=== PATIENT | male | born 1945 | race Caucasian/White ===

== ENCOUNTER → 2018-05-26 09:57 | Outpatient (CLI) | payer MEDICARE, OTHER, SELFPAY ==
[2018-05-26 11:58] LABS: Absolute Lymphocyte Count 0.59 X10^3/ul (0.83-4.51); Absolute Neutrophil Count 9.8 X10^3/uL (2.0-7.7); Basophil# 0.04 X10^3/uL; Basophil% 0.4 % (0-1); Eosinophil# 0.13 X10^3/uL; Eosinophils% 1.1 % (0-5); Hematocrit 48.5 % (40-54); Hemoglobin 15.5 g/dl (13.0-16.5); Lymphocyte # 0.59 X10^3/ul (4.0); Lymphocyte % 5.2 % (19-41); Mean Corpuscular Hgb 29.5 pg (27.0-32.0); Mean Corpuscular Volume 92.2 fL (80-94); Mean Platelet Vol. 9.3 fl (6.2-12.0); Monocyte# 0.64 X10^3/uL; Monocyte% 5.6 % (0-10); Neutrophil # 9.84 X10^3/uL (2.7-7.7); Neutrophil % 86.4 % (47-70); Platelet Count 264 K/mm3 (150-450); RBC Distribution Width CV 15.5 % (11.6-14.6); RBC Distribution Width SD 52.3 fl (35.1-43.9); Red Blood Count 5.26 M/mm3 (4.6-6.2); White Blood Count 11.4 K/mm3 (4.4-11.0)
[2018-05-26 11:59] LABS: Differential Indicated SCAN CRITERIA MET; POSITIVE COUNT NO; POSITIVE DIFFERENTIAL YES; POSITIVE MORPHOLOGY NO
[2018-05-26 12:11] LABS: AST(SGOT) 20 U/L (15-37); Alanine Aminotransfer ALT/SGPT 39 U/L (16-61); Albumin, Serum 3.3 g/dL (3.2-5.0); Alkaline Phosphatase 66 U/L (45-117); Anion Gap 11 (5-15); BUN 30 mg/dL (7-18); BUN/Creat Ratio 21.6 RATIO (10-20); Calcium,Total 9.3 mg/dL (8.5-10.1); Chloride 106 mmol/L (98-107); Creatinine, Serum 1.39 mg/dL (0.70-1.30); EST Glomerular Filtration Rate 53 mL/min (>60); Est Glom Filt Rate - Afr Amer 65 mL/min (>60); Globulin 3.4 g/dL (2.2-4.2); Glucose 109 mg/dL (74-106); Potassium 3.9 mmol/L (3.5-5.1); Protein, Total 6.7 g/dL (6.4-8.2); Rheumatoid Factor < 10.0 IU/mL (<15); Sodium Level 142 mmol/L (136-145)
[2018-05-26 12:22] LABS: Differential Comment SCANNED
[2018-06-02 10:33] LABS: CCP IgG Antibodies 4 units (0-19); HEPATITIS B SURFACE AG Negative (Negative); HLA B27 Negative (.); Hep B Surface Antibodies Reactive (.); Hep C Antibodies <0.1 s/co ratio (0.0-0.9)
== END ==
PROVIDERS: Family Provider Family Medicine; PCP Family Medicine; Visit Provider Internal Medicine Rheumatology
DX: M06.4 Inflammatory polyarthropathy (principal); M51.37 Other intervertebral disc degeneration, lumbosacral region; I10 Essential (primary) hypertension; E03.9 Hypothyroidism, unspecified; N40.1 Benign prostatic hyperplasia with lower urinary tract symptoms; F32.89 Other specified depressive episodes; J30.9 Allergic rhinitis, unspecified; K21.9 Gastro-esophageal reflux disease without esophagitis
CPT/HCPCS: 36415; 72170; 80053; 81374; 85025; 86200; 86431; 86706; 86803; 87340

== ENCOUNTER → 2018-09-22 16:44 | Outpatient (CLI) | payer MEDICARE, OTHER, SELFPAY ==
--- NOTE | 2018-09-22 16:49 | RAD_ITS ---
STUDY: X-RAY - PELVIS AND RIGHT HIP REASON FOR EXAM: Male, 73 years old. Right hip pain. TECHNIQUE: 3 views of the pelvis and hip. COMPARISON: Pelvis, May 26, 2018. FINDINGS: There is a non-specific bowel gas pattern. Normal visualized soft tissue structures. Again seen is posterior fusion of L5-S1. Normal bilateral iliac wings, sacroiliac joints and visualized sacrum. Normal bilateral superior and inferior pubic rami. Normal pubic symphysis. Normal bilateral ischial tuberosities. Normal visualized right femoral head. Normal right acetabulum. There is moderate articular joint space narrowing of the right hip. 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 Electronically Signed: Danish Aldrich DO at 23:15 EST Tel [phone], Service support ,
--- OUTSIDE RECORDS SUMMARY | 2018-12-25 05:21 | XMS RPT_ITS ---
:1945 Author Organization OHIP Support Name Relationship Address Phone SUKHDEVBRENDA Unavailable [address] + [place] [address] BRENDA SANTIZO Unavailable [address] [place] [address] BRENDA SANTIZO Unavailable [address] + [place] [address] BRENDA SANTIZO Unavailable [address] [place] [place] [address] BRENDA SANTIZO Unavailable [address] + [place] [address] BRENDA SANTIZO Unavailable [address] [place] [place] [address] BRENDA SANTIZO Unavailable [address] + [place] [address] S Unavailable Unavailable Unavailable BRENDA SANTIZO Unavailable [address] + [place] [address] BRENDA SANTIZO Unavailable [address] [place] [address] BRENDA SANTIZO Unavailable [address] + [place] [address] BRENDA SANTIZO Unavailable [address] [place] [address] BRENDA SANTIZO Unavailable [address] + [place] [address] S Unavailable Unavailable Unavailable BRENDA SANTIZO Unavailable [address] + [place] [address] BRENDA SANTIZO Unavailable [address] [place] [address] BRENDA SANTIZO Unavailable [address] + [place] [address] BRENDA SANTIZO Unavailable [address] [place] [address] Care Team Providers Name Role Phone Ramesh Barber Attending Unavailable Ramesh Barber Referring Unavailable Shaun Linda Primary Care Unavailable Tania Riggs Attending Unavailable Tania Riggs Referring Unavailable Alexei, Shaun Primary Care Unavailable ALEXEI, SHAUN Admitting Unavailable ALEXEI, SHAUN Attending Unavailable ALEXEI, SHAUN Primary Care Unavailable ALEXEI, SHAUN Consulting Unavailable PROVIDER, UNKNOWN Consulting Unavailable PROVIDER, UNKNOWN Consulting Unavailable PROVIDER, UNKNOWN Consulting Unavailable ALEXEI, SHAUN Admitting Unavailable ALEXEI, SHAUN Attending Unavailable ALEXEI, SHAUN Primary Care Unavailable ALEXEI, SHAUN Consulting Unavailable PROVIDER, UNKNOWN Consulting Unavailable PROVIDER, UNKNOWN Consulting Unavailable PROVIDER, UNKNOWN Consulting Unavailable INGRID SCHUSTER MD Admitting Unavailable SCHUSTER, INGRID PIERRE Attending Unavailable SCHUSTERINGRID MD Primary Care Unavailable SHAUN LINDA Consulting Unavailable PROVIDER, UNKNOWN Consulting Unavailable PROVIDER, UNKNOWN Consulting Unavailable PROVIDER, UNKNOWN Consulting Unavailable SCHUSTER, INGRID PIERRE Admitting Unavailable SCHUSTER, INGRID PIERRE Attending Unavailable SCHUSTER, INGRID PIERRE Primary Care Unavailable SHAUN LINDA Consulting Unavailable PROVIDER, UNKNOWN Consulting Unavailable PROVIDER, UNKNOWN Consulting Unavailable PROVIDER, UNKNOWN Consulting Unavailable INGRID SCHUSTER MD Admitting Unavailable SCHUSTER, INGRID PIERRE Attending Unavailable SCHUSTER, INGRID PIERRE Primary Care Unavailable SHAUN LINDA Consulting Unavailable PROVIDER, UNKNOWN Consulting Unavailable PROVIDER, UNKNOWN Consulting Unavailable PROVIDER, UNKNOWN Consulting Unavailable SCHUSTER, INGRID PIERRE Admitting Unavailable SCHUSTER, INGIRD PIERRE Attending Unavailable SCHUSTER, INGRID PIERRE Primary Care Unavailable SHAUN LINDA Consulting Unavailable PROVIDER, UNKNOWN Consulting Unavailable PROVIDER, UNKNOWN Consulting Unavailable PROVIDER, UNKNOWN Consulting Unavailable INGRID SCHUSTER MD Admitting Unavailable SCHUSTER, INGRID PIERRE Attending Unavailable SCHUSTERINGRID MD Primary Care Unavailable SHAUN LINDA Consulting Unavailable PROVIDER, UNKNOWN Consulting Unavailable PROVIDER, UNKNOWN Consulting Unavailable PROVIDER, UNKNOWN Consulting Unavailable Ingrid Schuster Attending Unavailable PROBLEMS PROBLEMS DATE TYPE CONDITION / CODE ATTENDING STATUS SOURCE 09/11/2018 Admitting Polymyalgia INGRID SCHUSTER MD Active [place] [facility] rheumatica / [facility] M353(ICD-10) Hospital Repository 09/11/2018 Principle Polymyalgia INGRID SCHUSTER MD Active [place] [facility] rheumatica / [facility] M353(ICD-10) Hospital Repository 09/11/2018 Secondary Age-related INGRID SCHUSTER MD Active [place] [facility] osteoporosis without [facility] fracture / Repository M810(ICD-10) 08/26/2018 Admitting Elevated C-reactive INGRID SCHUSTER MD Active [place] protein (CRP) / [facility] R7982(ICD-10) Hospital Repository 08/26/2018 Principle Elevated C-reactive ANEUDY, INGRID PIERRE Active [place] [facility] protein (CRP) / [facility] R7982(ICD-10) Hospital Repository 08/26/2018 Secondary 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, Hospital lumbosacral region / Repository M51.37(ICD-10) 05/26/2018 Unknown I10 - Essential [place], Active [place] (primary) [facility] hypertension / Hospital I10(ICD-10) Repository 05/26/2018 Unknown E03.9 - [place], Active [place] Hypothyroidism, [facility] unspecified / Hospital E03.9(ICD-10) Repository 05/26/2018 Unknown N40.1 - Benign [place], Active [place] prostatic [facility] hyperplasia with Hospital lower urinary tract Repository symptoms / N40.1(ICD-10) 05/26/2018 Unknown F32.89 - Other [place], Active [place] specified depressive [facility] episodes / Hospital F32.89(ICD-10) Repository 05/26/2018 Unknown J30.9 - Allergic [place], Active [place] rhinitis, [facility] unspecified / Hospital J30.9(ICD-10) Repository PROCEDURES PROCEDURES No Procedure Records FoundRESULTS RESULTS CBC Collected: 10/22/2018 Status: F Source: [place] 9:19 AM [facility] REPOSITORY TYPE CODE TESTS RESULT OUT OF RANGE REFERENCE UNITS LAB CBC(LOINC) CBC Result Comment: CBC-COMPLETE BLOOD COUNT LAB WBC(LOINC) 4.5 - 10.8 x 10EE3/UL WBC 8.6 LAB RBC(LOINC) 4.50 - x 10EE6/UL 6.00 RBC 4.97 LAB HEMOGLOBIN(LOINC 13.0 - g/dl ) 17.5 HEMOGLOBIN 15.1 LAB HEMATOCRIT(LOINC 40.0 - % ) 52.0 HEMATOCRIT 45.6 LAB MCV(LOINC) 81 - 98 fl MCV 92 LAB MCH(LOINC) 27 - 33 pg MCH 30 LAB MCHC(LOINC) 32 - 36 X10 3 MCHC 33 LAB RDW/CV(LOINC) 12.0 - % 15.6 RDW/CV High 15.9 LAB PLATELET(LOINC) 150 - 450 x10EE3/UL PLATELET 384 LAB MPV(LOINC) 6.4 - 10.5 fl MPV 7.3 Result Comment: AUTOMATED DIFFERENTIAL LAB NEUT %(LOINC) 46.0 - % 76.0 NEUT % 62.4 LAB LYMPH %(LOINC) 20.0 - % 45.0 LYMPH % 26.0 LAB MONOS %(LOINC) 0.0 - 10.0 % MONOS % 7.1 LAB EO %(LOINC) 0.0 - 7.0 % EO % 3.7 LAB BASO %(LOINC) 0.0 - 2.0 % BASO % 0.8 LAB Lymph #(LOINC) 0.80 - x10EE3/ 2.80 UL Lymph # 2.20 LAB Neut #(LOINC) 1.50 - x10EE3/ 7.10 UL Neut # 5.40 LAB [place] #(LOINC) 0.20 - x10EE3/ 1.00 UL [place] # 0.60 LAB EO #(LOINC) 0.00 - x10EE3/ 0.50 UL EO # 0.30 LAB Baso #(LOINC) 0.00 - x10EE3/ 0.10 UL Baso # 0.10 LAB MANUAL DIFF(LOINC) MANUAL DIFF SEE BELOW LAB BANDS(LOINC) 0 - 5 % BANDS 9 High LAB SEGS(LOINC) 50 - 70 % SEGS 55 LAB LYMPH(LOINC) 20 - 40 % LYMPH 23 LAB MONOS(LOINC) 0 - 8 % MONOS 6 LAB EO(LOINC) 0.0 - 4.0 % EO 7.0 High LAB MORPHOLOGY(LOIN C) MORPHOLOGY REVIEWED Result Comment: {CD] Performed By: #### [id number] #### [facility],[address] [place], [place] [id number] SEDRATE Collected: 10/22/2018 Status: F Source: [place] 9:19 AM [facility] REPOSITORY TYPE CODE TESTS RESULT OUT OF REFERENCE UNITS RANGE LAB SEDRATE(MADI 0 - 20 mm/hr NC) SEDRATE 9 Performed By: #### [id number] #### [place] [address] C-REACTIVE PROTEIN Collected: 10/07/2018 Status: F Source: [place] 2:50 PM [facility] REPOSITORY TYPE CODE TESTS RESULT OUT OF RANGE REFERENCE UNITS LAB CRP(LOINC) 0.00 - 1.00 mg/dl CRP 0.60 Performed By: #### [id number] #### [facility],[address] [place] [address] SEDRATE Collected: 10/07/2018 Status: F Source: [place] 2:50 PM [facility] REPOSITORY TYPE CODE TESTS RESULT OUT OF REFERENCE UNITS RANGE LAB SEDRATE(MADI 0 - 20 mm/hr NC) SEDRATE 13 Performed By: #### [id number] #### [place] [id number] BONE DENSITY STUDY Observed: 09/24/2018 Status: F Source: [place] 2:57 PM [place] [address] Patient: WENDY SANTIZO Phone#: : 1945 Age: 73 Gender: M Pt. Type: Out Account: [id number] Location: Ordering: INGRID SCHUSTER Exam Date: 09/24/2018/14:00 Family Phys: SHAUN LINDA Charge Code: [id number] Physician: [place] Order #: [id number] DLP Dose#: PROCEDURE: BONE DENSITY STUDY TECHNIQUE: Lumbar vertebral and proximal femoral dual-energy X-ray absorptiometry (DXA) was performed on a central [place] device. SPINE ANALYSIS RESULTS: Average lumbar bone mineral density (BMD) (g/cm2): 1.326 Lumbar T-score (standard deviation relative to young adult mean BMD): 1.0 Lumbar Z-score (standard deviation relative to age matched control group): 0.8 SPINE CLASSIFICATION: Normal (T-score > -1.0). HIP ANALYSIS RESULTS: Left femoral bone mineral density (BMD) (g/cm2): 1.164 Right femoral bone mineral density (BMD) (g/cm2): 1.107 Femur T-score (standard deviation relative to young adult mean BMD): 0.3 Femur Z-score (standard deviation relative to age matched control group): 0.7 HIP CLASSIFICATION (World Health Organization): Normal (T-score > -1.0). Note: The 2007 International Society for Clinical Densitometry (ISCD) Official Positions state that osteoporosis in soheila-menopausal and post-menopausal women and in men age 50 and older may be diagnosed if the T-score of the lumbar spine, total hip, or femoral neck is -2.5 or less. Hip BMD is reported from the femoral neck or total proximal femur whichever is lowest. In pre-menopausal women and in men younger than age 50, T-scores may be used but Z-scores are preferred. In this patient group, a Z-score of -2.0 or lower is defined as below the expected range for age. FRAX is a computer-based algorithm which uses easily obtained clinical risk factors combined with femoral neck BMD or T-score to estimate an individual 10-year fracture probability. FRAX with BMD predicts fracture risk better than clinical risk factors or BMD alone. It is not appropriate to use FRAX to monitor treatment response. ADDITIONAL FINDINGS: No significant additional findings. [place] [address] Patient: WENDY SANTIZO Phone#: : 1945 Age: 73 Gender: M Pt. Type: Out Account: [id number] Location: Ordering: INGRID ANEUDY Exam Date: 09/24/2018/14:00 Family Phys: SHAUN LINDA Charge Code: [id number] Physician: [place] Order #: [id number] DLP Dose#: Dictated by: Kendal Todd MD on 09/24/2018 at 15:03 Approved by: Kendal Todd MD on 09/24/2018 at 15:03 HIP, UNI W/ PELVIS Observed: 09/22/2018 Status: F Source: [facility] 2-3 VIEWS 4:49 PM [facility] REPOSITORY [facility] Imaging Services [address] [place] [address] HIP, UNI W/ Pelvis 2-3 Views MR#: [id number] Acct: [id number] Name: WENDY SANTIZO Rep #: [id number] : 1945 M 73 From: Danish Aldrich DO PCP: Shaun Linda MD Status: REG CLI Study: HIP, UNI W/ Pelvis 2-3 Views Date of Exam: 09/22/18 Exam# [id number] Ordering Dr: Ramesh Barber MD STUDY: X-RAY - PELVIS AND RIGHT HIP REASON FOR EXAM: Male, 73 years old. Right hip pain. TECHNIQUE: 3 views of the pelvis and hip. COMPARISON: Pelvis, May 26, 2018. FINDINGS: There is a non-specific bowel gas pattern. Normal visualized soft tissue structures. Again seen is posterior fusion of L5-S1. Normal bilateral iliac wings, sacroiliac joints and visualized sacrum. Normal bilateral superior and inferior pubic rami. Normal pubic symphysis. Normal bilateral ischial tuberosities. Normal visualized right femoral head. Normal right acetabulum. There is moderate articular joint space narrowing of the right hip. 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 Electronically Signed: Danish Aldrich DO at 23:15 EST Tel [phone], Service support , CC: Ramesh Barber; Shaun Linda MD Silica Spray Mixer: Signed PTH, INTACT Collected: 09/11/2018 Status: F Source: [place] 1:09 PM [facility] REPOSIT[facility] TYPE CODE TESTS RESULT OUT OF REFERENCE UNITS RANGE LAB PTH(LOINC) 15-65 pg/mL High PTH, Intact 91 Performed By: #### PTHI #### [facility] Routine Lab [address] [place] [address] SEDRATE Collected: 09/11/2018 Status: F Source: [place] 1:09 PM [facility] REPOSITORY TYPE CODE TESTS RESULT OUT OF REFERENCE UNITS RANGE LAB SEDRATE(MADI 0 - 20 mm/hr NC) SEDRATE 6 Performed By: #### [id number] #### [address] [address] VITAMIN D, 25 Collected: 09/11/2018 Status: F Source: [place] HYDROXY 1:09 [facility] REPOSITORY TYPE CODE TESTS RESULT OUT OF RANGE REFERENCE UNITS LAB VitD(LOINC) 30.00 - 100 ng/mL Low VitD 15.61 Result Comment: 25-OHD3 indicates both endogenous production and supplementation. 25-OHD2 is an indicator of exogenous sources, such as diet or supplementation. Therapy is based on measurement of Total 25-OHD, with levels <20 ng/mL indicative of Vitamin D deficiency, while levels between 20 ng/mL and 30 ng/mL suggest insufficiency. Optimal levels are >=30ng/mL. Vitamin D, 25-OH D3 Not Established Vitamin D, 25-OH D2 Not Established Performed By: #### [id number] #### [address] [address] C-REACTIVE PROTEIN Collected: 09/11/2018 Status: F Source: [place] 1:09 PM [facility] REPOSITORY TYPE CODE TESTS RESULT OUT OF RANGE REFERENCE UNITS LAB CRP(LOINC) 0.00 - 1.00 mg/dl CRP 0.20 Performed By: #### [id number] #### [address] [address] CREATININE CLEARANCE, Collected: 09/11/2018 Status: F Source: [place] SERUM 1:09 [facility] REPOSITORY TYPE CODE TESTS RESULT OUT OF REFERENCE UNITS RANGE LAB CREATININE 0.7 - 1.3 mg/dl (LOINC) High CREATININE 1.4 LAB AGE(LOINC) years AGE 73 LAB eGFR(LOINC 60 - 999 ML/MINUTE ) Low eGFR 50 LAB eGFR(AA)(L 60 - 999 ML/MINUTE OINC) eGFR(AA) 60 Result Comment: ACCORDING TO THE NATIONAL KIDNEY DISEASE EDUCATION PROGRAM(NKDE), A NORMAL eGFR IS A VALUE GREATER THAN OR EQUAL TO 60 ML/MIN/1.73 SQ METERS. CHRONIC KIDNEY DISEASE: <60mL/MIN/1.73 SQ METERS KIDNEY FAILURE: <15mL/MIN/1.73 SQ METERS THIS TEST SHOULD ONLY BE USED FOR PATIENTS 18 YEARS OF AGE AND OLDER. Performed By: #### [id number] #### [facility],[address] [place] [address] CALCIUM TOTAL Collected: 09/11/2018 Status: F Source: [facility] 1:09 [facility] REPOSITORY TYPE CODE TESTS RESULT OUT OF REFERENCE UNITS RANGE LAB CALCIUM(MADI 8.6 - 10.2 mg/dl NC) CALCIUM 9.7 Performed By: #### [id number] #### [facility],[address] [place], [place] [id number] PTH, INTACT [CCL] Collected: 09/11/2018 Status: F Source: [facility] 1:09 [facility] REPOSITORY TYPE CODE TESTS RESULT OUT OF REFERENCE UNITS RANGE LAB PTH, INTACT [CCL](LOINC) PTH, INTACT [CCL] Result Comment: _PTH, INTACT [CCL]_ PTH, INTACT [CCL] Reported: 09/12/2018 03:57 Status=F TEST RESULT FLAG RANGE UNITS PTH, Intact 91 H 15-65 pg/mL 09/12/[email or web address] [facility] [address] [place] [address] Debra Jose M.D. [id number] Performed By: #### [id number] #### [facility],[address] [place] [address] KNEE COMPLETE RT MIN Observed: 08/26/2018 Status: F Source: [facility] 4 VIEWS 11:00 AM [place] [address] Patient: WENDY SANTIZO Phone#: : 1945 Age: 73 Gender: M Pt. Type: Out Account: [id number] Location: Ordering: INGRID SCHUSTER Exam Date: 08/26/2018/10:32 Family Phys: SHAUN LINDA Charge Code: [id number] Physician: [place] Order #: [id number] DLP Dose#: PROCEDURE: X-RAY KNEE RT COMPLETE 4 VIEWS COMPARISON: None. INDICATIONS: Osteoarthritis. FINDINGS: BONES: There is mild medial compartment joint space loss. No fracture or dislocation. There is mild spurring at the undersurface of the patella. There is lateral patellar tilt measuring 9.6. SOFT TISSUES: Negative. No visible soft tissue swelling. EFFUSION: There is a trace suprapatellar joint effusion. OTHER: Negative. CONCLUSION: 1. Mild medial compartment joint space loss. 2. Lateral patellar tilt and spurring of the undersurface of the patella. Dictated by: eKndal Todd MD on 08/26/2018 at 11:45 Approved by: Kendal Todd MD on 08/26/2018 at 11:45 KNEE COMPLETE LT MIN Observed: 08/26/2018 Status: F Source: [facility] [facility] 4 VIEWS 11:[address] [address] Patient: WENDY SANTIZO Phone#: : 1945 Age: 73 Gender: M Pt. Type: Out Account: [id number] Location: Ordering: INGRID SCHUSTER Exam Date: 08/26/2018/10:35 Family Phys: SHAUN LINDA Charge Code: [id number] Physician: [place] Order #: [id number] DLP Dose#: PROCEDURE: X-RAY KNEE LT COMPLETE 4 VIEWS COMPARISON: None. INDICATIONS: Osteoarthritis. FINDINGS: BONES: There is mild medial compartment joint space loss. There is spurring and the undersurface of the patella. There is mild patellofemoral compartment joint space loss. SOFT TISSUES: Negative. No visible soft tissue swelling. EFFUSION: None visible. OTHER: Negative. CONCLUSION: 1. Mild patellofemoral and medial compartments joint space loss. Dictated by: Kendal Todd MD on 08/26/2018 at 11:46 Approved by: Kendal Todd MD on 08/26/2018 at 11:46 C-REACTIVE PROTEIN Collected: 08/26/2018 Status: F Source: [facility] 10:37 AM [facility] REPOSITORY TYPE CODE TESTS RESULT OUT OF RANGE REFERENCE UNITS LAB CRP(LOINC) 0.00 - 1.00 mg/dl CRP 0.40 Performed By: #### [id number] #### [place] [address] SEDRATE Collected: 08/26/2018 Status: F Source: [facility] 10:37 AM [facility] REPOSITORY TYPE CODE TESTS RESULT OUT OF REFERENCE UNITS RANGE LAB SEDRATE(MADI 0 - 20 mm/hr NC) SEDRATE 8 Performed By: #### [id number] #### [facility],[address] [place] [address] TP Collected: 08/19/2018 Status: F Source: [facility] 12:00 PM [facility] REPOSITORY TYPE CODE TESTS RESULT OUT OF RANGE REFERENCE UNITS LAB L500.41720 6.0-8.5 GM/DL Normal TP 6.7 Performed By: #### L500.85914, L500.44821 #### [facility] [address] [place] [address] BILI TOTAL Collected: 08/19/2018 Status: F Source: [facility] 12:00 PM [facility] REPOSITORY TYPE CODE TESTS RESULT OUT OF RANGE REFERENCE UNITS LAB L500.27062 0.2-1.0 MG/DL Normal BILI 0.4 TOTAL Performed By: #### L500.51432, L500.12547 #### [facility] [address] [place] [address] PELVIS 1 OR 2 VIEWS Observed: 05/26/2018 Status: F Source: [facility] 10:10 AM [facility] REPOSITORY [facility] Imaging Services [address] [place] [address] Pelvis 1 or 2 Views MR#: [id number] Acct: [id number] Name: WENDY SANTIZO Rep #: [id number] : 1945 M 72 From: Noé Lomeli DO PCP: Shaun Linda Status: REG CLI Study: Pelvis 1 or 2 Views Date of Exam: 05/26/18 Exam# [id number] Ordering Dr: Tania Riggs MD STUDY: X-RAY - PELVIS REASON FOR EXAM: Male, 72 years old. Bilateral hip pain TECHNIQUE: One view of the pelvis was obtained. COMPARISON: None. FINDINGS: There is a non-specific bowel gas pattern. Normal visualized soft tissue structures. Lower lumbar spine degenerative change with fusion Normal bilateral iliac wings, sacroiliac joints and visualized sacrum. Normal visualized bilateral superior and inferior pubic rami. Normal pubic symphysis. Normal ischial tuberosities. There are osteoarthritic changes of the right femoral head with marginal osteophyte formation. Normal right acetabulum. There is mild articular joint space narrowing of the right hip. There are osteoarthritic changes of the left femoral head with marginal osteophyte formation. Normal left acetabulum. There is mild articular joint space narrowing of the left hip. RAD/Pelvis 1 or 2 Views IMPRESSION: Mild bilateral hip degenerative changes Electronically Signed: Noé Lomeli DO at 9:54 EDT Tel , Service support , CC: Tania Riggs MD; Shaun Linda Silica Spray Mixer: Signed CBC W/DIFF, AUTOMATED Collected: 05/26/2018 Status: F Source: [place] 10:09 AM [facility] REPOSITORY TYPE CODE TESTS RESULT OUT OF RANGE REFERENCE UNITS LAB L100.1000 4.4-11.0 K/mm3 High WBC 11.4 LAB L100.1200 4.6-6.2 M/mm3 Normal RBC 5.26 LAB L100.1300 13.0-16.5 g/dl Normal HGB 15.5 LAB L100.1400 40-54 % Normal HCT 48.5 LAB L100.1500 80-94 fL Normal MCV 92.2 LAB L100.1600 27.0-32.0 pg Normal MCH 29.5 LAB L100.1700 32-36 g/gl Normal MCHC 32.0 LAB L100.1810 11.6-14.6 % High RDW CV 15.5 LAB L100.1820 35.1-43.9 fl High RDW SD 52.3 LAB L100.1900 150-450 K/mm3 Normal PLT 264 LAB L100.2000 6.2-12.0 fl Normal MPV 9.3 LAB L100.2100 47-70 % High NEUT% 86.4 LAB L100.2200 19-41 % Low LY% 5.2 LAB L100.2300 0-10 % Normal MONO% 5.6 LAB L100.2400 0-5 % Normal EO% 1.1 LAB L100.2500 0-1 % Normal BASO% 0.4 LAB L100.2550 0.0-0.9 % High IM GRAN % 1.300 Result Comment: IG% - Immature Granulocytes (promyelocytes, myelocytes and metamyelocytes) > 1% indicates that a LEFT SHIFT is Present. LAB L100.2620 2.0-7.7 X10 3/uL High Absolute Neut 9.8 LAB L100.2720 0.83-4.51 X10 3/ul Low Absolute Lymph 0.59 LAB L100.4500 Normal SMEAR COMMENT SCANNED Result Comment: RARE BANDS NOTED Performed By: #### L100.0100 #### [facility] [place], [address] COMPREHENSIVE METABOLIC Collected: 05/26/2018 Status: F Source: [facility] 10:09 AM [facility] REPOSITORY TYPE CODE TESTS RESULT OUT OF RANGE REFERENCE UNITS LAB L501.0100 74-106 mg/dL High GLU 109 Result Comment: Fasting Glucose result from 100 to 125 mg/dL suggests IMPAIRED HOMEOSTASIS per A.D.A. criteria. Please note revised GLUCOSE reference range effective 2017. LAB L501.1000 7-18 mg/dL High BUN 30 LAB L501.1100 0.70-1.30 mg/dL High CREAT,SERUM 1.39 Result Comment: The validity of the calculated GFR AND GFRAA in patients over 70 years has not been determined. Clinical correlation is essential. LAB L501.1110 >60 mL/min Low EST GFR 53 Result Comment: Non- GFR Calc LAB L501.1115 >60 mL/min Normal EST GFR - AA 65 Result Comment: GFR Calc LAB L501.1300 10-20 RATIO High BUN/CRE 21.6 LAB L501.1500 6.4-8.2 g/dL T Normal PROT 6.7 LAB L501.1800 3.2-5.0 g/dL Normal ALB 3.3 LAB L501.1950 2.2-4.2 g/dL Normal GLOB 3.4 LAB L501.2000 0.9-2.4 RATIO Normal A/G 1.0 LAB L501.2200 8.5-10.1 mg/dL CA Normal 9.3 LAB L501.4100 15-37 U/L Normal AST 20 LAB L501.4305 45-117 U/L Normal ALK P 66 LAB L501.4405 16-61 U/L Normal ALT 39 LAB L501.4600 0.20-1.00 mg/dL T Normal BILI 0.50 LAB L501.5300 136-145 mmol/L NA Normal 142 LAB L501.5600 3.5-5.1 mmol/L K Normal 3.9 LAB L501.5900 98-107 mmol/L CL Normal 106 LAB L501.6100 21.0-32.0 mmol/L Normal CO2 25.0 LAB L501.6200 5-15 Normal GAP 11 Performed By: #### L500.4050, L505.7010 #### [facility] [address] [place], [place], [address] RHEUMATOID FACTOR Collected: 05/26/2018 Status: F Source: [place] 10:09 AM [facility] REPOSITORY TYPE CODE TESTS RESULT OUT OF RANGE REFERENCE UNITS LAB L505.7010 <15 IU/mL Normal RHEUMATOID FAC < 10.0 Performed By: #### L500.4050, L505.7010 #### [facility] [address] [place], [place], [id number] HEPATITIS B SURFACE Collected: 05/26/2018 Status: F Source: [facility] [place] 10:09 AM [facility] REPOSITORY TYPE CODE TESTS RESULT OUT OF RANGE REFERENCE UNITS LAB L3100.0400 Negative Normal HB Negative SURF AG Result Comment: Performed at: - [facility] [id number] Soapstoner: Booker Iraheta PhD, Phone: [phone] Performed at: [address] [place] [id number] Soapstoner: Philip Hodges PhD, Phone: [id number] Performed at: - [address] [id number] [place]: Nabor Monahan MD, Phone: [phone] Performed By: #### L3100.0390, L3100.0528, L3100.0625, L3410.1400, L4600.0100 #### [facility] (refer to report for specific site) refer to report for address and phone number HEP B SURFACE Collected: 05/26/2018 Status: F Source: RUMA ANTIBODIES 10:09 AM [facility] REPOSITORY TYPE CODE TESTS RESULT OUT OF RANGE REFERENCE UNITS LAB L3100.0528 . Normal Hep B Reactive Javy AB Result Comment: Non Reactive: Inconsistent with immunity, less than 10 mIU/mL Reactive: Consistent with immunity, greater than 9.9 mIU/mL Performed By: #### L3100.0390, L3100.0528, L3100.0625, L3410.1400, L4600.0100 #### [facility] (refer to report for specific site) refer to report for address and phone number HEPATITIS C ANTIBODIES Collected: 05/26/2018 Status: F Source: RUMA 10:09 AM [facility] REPOSITORY TYPE CODE TESTS RESULT OUT OF RANGE REFERENCE UNITS LAB L3100.0650 0.0-0.9 s/co ratio Normal HEP C AB <0.1 Result Comment: Negative: < 0.8 Indeterminate: 0.8 - 0.9 Positive: > 0.9 The CDC recommends that a positive HCV antibody result be followed up with a HCV Nucleic Acid Amplification test (711994). Performed By: #### L3100.0390, L3100.0528, L3100.0625, L3410.1400, L4600.0100 #### [facility] (refer to report for specific site) refer to report for address and phone number HLA B27 Collected: 05/26/2018 Status: F Source: RUMA 10:09 AM [facility] REPOSITORY TYPE CODE TESTS RESULT OUT OF RANGE REFERENCE UNITS LAB L3410.1500 . Normal HLA Negative B27 Result Comment: HLA-B*27 Negative B27 allele interpretation for all loci based on IMGT/HLA database version 3.27 This test was developed and its performance characteristics determined by [facility]. It has not been cleared or approved by the Food and Drug Administration. [facility] CLIA ID Number [id number] This test was performed using PCR (Polymerase Chain Reaction)/SSOP (Sequence Specific Oligonucleotide Probes) technique. SBT (Sequence Based Typing) and/or SSP (Sequence Specific Primers) may be used as supplemental methods when necessary. Please contact [facility] Customer Service at if you have any questions. Director of [facility] Laboratory Dr Philip Hodges, PhD Performed By: #### L3100.0390, L3100.0528, L3100.0625, L3410.1400, L4600.0100 #### [facility] (refer to report for specific site) refer to report for address and phone number CCP IGG ANTIBODIES Collected: 05/26/2018 Status: F Source: RUMA 10:09 AM [facility] REPOSITORY TYPE CODE TESTS RESULT OUT OF RANGE REFERENCE UNITS LAB L4600.0100 0-19 units Normal ANTI-CCP 4 113104 Result Comment: Negative <20 Weak positive 20 - 39 Moderate positive 40 - 59 Strong positive >59 Performed By: #### L3100.0390, L3100.0528, L3100.0625, L3410.1400, L4600.0100 #### [facility] (refer to report for specific site) refer to report for address and phone number MR HIP WO RT Observed: 01/08/2018 Status: F Source: [facility] 8:56 PM [place] [address] Patient: WENDY SANTIZO Phone#: : 1945 Age: 72 Gender: M Pt. Type: Out Account: [id number] Location: Ordering: SHAUN LINDA Exam Date: 01/08/2018/19:31 Family Phys: Charge Code: [id number] Physician: [place] Order #: [id number] DLP Dose#: PROCEDURE: MRI HIP RT WITHOUT CONTRAST COMPARISON: None. INDICATIONS: Right hip pain TECHNIQUE: A comprehensive examination was performed utilizing a variety of imaging planes and imaging parameters to optimize visualization of suspected pathology. Images were performed without contrast. FINDINGS: FEMORAL HEAD: There is edema in the anterior aspect of the femoral head, series 9 image 16 without cortical disruption, suggesting bone contusion. ACETABULUM: There is a thin hypointense line through the anterior superior rim of the acetabulum with adjacent edema, series 11 image 19 and series 3 image 15. This is consistent with a nondisplaced hairline fracture the anterior superior corner of the acetabulum. OTHER BONES: Artifact from lumbosacral posterior spinal fusion hardware, incompletely evaluated on this exam. Right sacroiliac anterior osseous fusion. LABRUM: Superior labral tear with small para labral cyst measuring 0.3 x 1.4 x 0.3 cm, series 10 image 13 EFFUSIONS: Small joint effusion. BURSAE: Normal. No evidence of iliopsoas or trochanteric bursitis. TENDONS: There is edema in and surrounding the femoral attachment of the obturator externus and iliopsoas tendons, consistent with high-grade sprain. MUSCLES: There is edema in the iliacus muscle in the portion adjacent to the anterior acetabular rim and extending along the anterior iliac rim. OTHER: Moderate to large sized bilateral hydroceles incidentally noted. CONCLUSION: 1. Nondisplaced hairline fracture of the anterior superior corner of the acetabulum. 2. Anterior femoral head contusion 3. Superior labral tear with a small para labral cyst. 4. High-grade strain of the obturator internus and iliopsoas tendons at their femoral attachment. Continued Report - Page 2 of 2 Patient: WENDY SANTIZO Phone#: : 1945 Age: 72 Gender: M Pt. Type: Out Account: [id number] Location: Ordering: SHAUN [facility] Exam Date: 01/08/2018/19:31 Family Phys: Charge Code: 738315 Physician: [place] Order #: [id number] DLP Dose#: 5. Bilateral hydroceles. Dictated by: Kendal Todd MD on 01/11/2018 at 16:46 Approved by: Kendal Todd MD on 01/11/2018 at 16:46 HIP COMPLETE RT MIN 2 Observed: 10/31/2017 Status: F Source: [facility] VIEWS W/PELVIS 4:58 PM [place] [address] Patient: WENDY SANTIZO Phone#: : 1945 Age: 72 Gender: M Pt. Type: Out Account: [id number] Location: Ordering: SHAUN [facility] Exam Date: 10/31/2017/16:38 Family Phys: Charge Code: [id number] Physician: [place] Order #: [id number] DLP Dose#: PROCEDURE: X-RAY HIP RT COMPLETE MIN 2 VIEWS W/PELVIS COMPARISON: None. INDICATIONS: Hip injury FINDINGS: BONES: Surgical fixation is present at L5-S1 level. Mild degenerative changes are present at the hips. Moderate degenerative changes present at the lower lumbar spine. There is no evidence of acute bone abnormality. SOFT TISSUES: Negative. No visible soft tissue swelling. EFFUSION: None visible. OTHER: Negative. CONCLUSION: 1. There is no evidence of acute bone abnormality. Surgical fixation is present at the L5-S1 level. Dictated by: Sallie Kaur MD on 11/03/2017 at 12:31 Approved by: Sallie Kaur MD on 11/03/2017 at 12:31 ALLERGIES ALLERGIES No Allergies Records FoundENCOUNTERS ENCOUNTERS ADMIT/DISCHARGE ACCOUNT ADMITTING ENCOUNTER LOCATION SOURCE NUMBER CLASS 10/22/2018/ [id number] INGRID SCHUSTER MD Ambulatory [place] Repository 10/07/2018/ [id number] INGRID SCHUSTER MD Ambulatory [place] [address] Repository 09/24/2018/ [id number] INGRID SCHUSTER MD Ambulatory [address] Repository 09/22/2018 [id number] Ambulatory [place] 0 [facility] ing:RAD Repository 09/11/2018/ [id number] INGRID SCHUSTER MD [address] Repository 08/26/2018/ [id number] INGRID SCHUSTER MD [address] Repository 08/19/2018 [id number] Ambulatory [address] [place] g:H.ELS Repository 05/26/2018 [id number] Amb[place] 5 [facility] ing:MTLAB Repository 01/08/2018/ [id number] SHAUN LINDA [address] Repository 10/31/2017/ [id number] SHAUN LINDA [address] Repository PAYERS PAYERS ENCOUNTER GUARANTOR PAYER SUBSCRIBER SOURCE 10/22/2018 WENDY Andino Primary Insurance:500 WENDY L [place] ROWLANDDOB: MEDICARE CABOTDOB: [facility] [id number] [facility] [id number] [address] StreetN Number: RYAN [facility] [id number] GABRIEL TAVARES Id Date:Plan Name: Chuck Conner [id number]: () 10/22/2018 Secondary WENDY L [place] Insurance:[facility] [facility] [place]: [employer] [id number] [facility] RYAN Repository Number: [id number] CIRCLEJESUS 90Effective Date: [place], [place] [id number] 10/07/2018 WENDY L Primary Insurance:500 WENDY Corrigan [facility] [id number] Hospital RYAN Number: RYAN Repository CIRCLEMILLERSBU [id number] [facility] Date:Plan Name:[facility] [id number]: () 10/07/2018 Secondary WENDY L [place] Insurance:DEBBIE HANNONB: [employer] [id number] [facility] RYAN Repository Number: CIRCLEMILLERSIAN [id number] [place], [place] [id number] Date:Plan Name: 09/24/2018 WENDY L Primary Insurance:500 WENDY Corrigan [facility]: [facility] [id number] Hospital RYAN Number: RYAN Repository CIRCLESOLELLERSBU [id number] [facility] Date:Plan Name:[facility] [id number]: () 09/24/2018 Secondary WENDY Adamesne Insurance:[facility]ANN[facility]: [employer] [id number] [place] [address] RYAN Repository Number: [place] [id number] [place], [place] [id number] Date:Plan Name: 09/22/2018 WENDY L Primary WENDY Hendrix [place] [address] Insurance:MEDICARE ROWLANDDOB: [facility] RYAN PART A BPolicy Number: [id number] [facility], [id number] [place]ository [place] [address]Bbl: Date:2018-09-22 () 09/22/2018 Secondary WENDY L [place] Insurance:[facility]: [facility] Number: [id number] Hospital [id number] Repository Date:[id number] JOANNE NARAYAN [address]66[address]IX: 09/22/2018 Tertiary NOT GIVENUNK [place] Insurance:SELF PAY [facility] Number: Effective Repository Date:2018-09-22 09/11/2018 WENDY L Primary Insurance:500 WENDY L [place] [facility] MEDICARE [facility]: [facility] [id number] Hospital RYAN Number: RYAN Repository CIRCLEMILLERSBU [id number] [facility] Date:Plan Name:[facility] [id number]: () 09/11/2018 Secondary WENDY L [place] Insurance:[facility]: [facility] [employer] [place] [id number] [place] [address] RYAN Repository Number: CIRCLEMILL[place] [id number] [place], [place] [id number] Date: 08/26/2018 WENDY L Primary Insurance:500 WENDY [place] [facility]: MEDICARE ROWLANDDOB: [facility] [id number] Hospital RYAN Number: RYAN Repository CIRCLEMILLERSBU [id number] [facility] Date:Plan Name:[facility] [id number]: () 08/26/2018 Secondary WENDY L [place] Insurance:[facility]: [facility] [place] [id number] [place] [address] RYAN Repository Number: [id number] [place] 90Effective Date: [place], [place] [id number] 08/19/2018 WENDY L Primary WENDY L [place] [address] Insurance:MEDICAREPoli ROWLANDUNK Center Geraldo DAVIS cy Number: Repository [place], [id number] [place] [id number]: Date:[address]CVWV CODE (HP) FN683HWFIAIUE, [place] [address]OT: 08/19/2018 Secondary WENDY L [facility] Insurance:[facility] Number: Repository [id number] Date:[address] [address]REYSJZKNK, [place] [address]IT: 05/26/2018 WENDY L Primary WENDY L [place] [address] Insurance:MEDICARE ROWLANDDOB: [facility] PART A BPolicy Number: [id number], [id number] Repository [place] [address]Qxf: Date:2018-05-26 () 05/26/2018 Secondary WENDY L [place] Insurance:[facility]: [facility] Number: [id number] Hospital [id number] Repository Date:3490-13-69AZPWPQ [facility] [place] [address]LK: 05/26/2018 Tertiary NOT [facility] [place] Insurance:SELF PAY [facility] Number: Effective Repository Date:2018-05-26 01/08/2018 WENDY L Primary Insurance:[facility] WENDY L [place] [facility]: MEDICARE ROWLANDDOB: [facility] [id number] [address] StreetN Number: RYAN Repository [facility] [id number] [place] Date:Plan Name:[facility] [id number]: () 01/08/2018 Secondary WENDY L [place] Insurance:[facility]: [facility] [id number] RYAN Repository Number: [id number] [facility] 90Effective Date: Id [id number] 10/31/2017 WENDY L Primary Insurance:[facility] WENDY Corrigan [facility]: MEDICARE ROWLANDDOB: [facility] [id number] [facility] RYAN Number: RYAN Repository CIRCLE[place]LLERS [id number] CHAITANYA VO, Id Date:Plan Name:[facility] [id number]: () 10/31/2017 Secondary WENDY Corrigan Insurance:[facility] [place] [facility] [place]: [facility] [place] [id number] [facility] RYAN Repository Number: [id number] [place] 90Effective Date:Plan , [place] [id number] Name:KAYLIE
== END ==
PROVIDERS: Family Provider Family Medicine; PCP Family Medicine; Referring Provider Anesthesiology Pain Medicine; Visit Provider Anesthesiology Pain Medicine
DX: M25.551 Pain in right hip (principal); R10.30 Lower abdominal pain, unspecified
CPT/HCPCS: 73502

== ENCOUNTER → 2020-03-29 11:49 | Outpatient (CLI) | payer MEDICARE, OTHER, SELFPAY ==
[2020-03-31 06:10] LABS: Thyroid Peroxidase AB 10 IU/mL (0-34)
[2020-04-02 11:30] LABS: Anti-Nuclear Antibody Test Negative (.)
== END ==
PROVIDERS: PCP Family Medicine; Referring Provider Dermatology Pediatric Dermatology; Visit Provider Dermatology Pediatric Dermatology
DX: E03.8 Other specified hypothyroidism (principal); L29.8 Other pruritus; L63.0 Alopecia (capitis) totalis; L20.89 Other atopic dermatitis
CPT/HCPCS: 36415; 84153; 86038; 86376; G0103

== ENCOUNTER → 2020-09-12 16:16 | Outpatient (CLI) | payer MEDICARE, OTHER, SELFPAY ==
[2020-09-12 17:34] LABS: Hematocrit 44.5 % (40-54); Hemoglobin 14.8 g/dL (13.0-16.5); Mean Corp Hgb Conc 33.3 g/dL (32-36); Mean Corpuscular Volume 93.1 fL (80-94); Mean Platelet Vol. 9.2 fl (6.2-12.0); Platelet Count 349 K/mm3 (150-450); RBC Distribution Width CV 13.1 % (11.6-14.6); RBC Distribution Width SD 44.6 fl (35.1-43.9); Red Blood Count 4.78 M/mm3 (4.6-6.2); White Blood Count 10.8 K/mm3 (4.4-11.0)
[2020-09-12 17:57] LABS: Anion Gap 4 (5-15); BUN 22 mg/dL (7-18); BUN/Creat Ratio 13.2 RATIO (10-20); Calcium,Total 9.7 mg/dL (8.5-10.1); Chloride 109 mmol/L (98-107); Creatinine, Serum 1.67 mg/dL (0.70-1.30); EST Glomerular Filtration Rate 43 mL/min (>60); Est Glom Filt Rate - Afr Amer 52 mL/min (>60); Glucose 87 mg/dL (74-106); Potassium 4.2 mmol/L (3.5-5.1); Sodium Level 141 mmol/L (136-145)
== END ==
PROVIDERS: PCP Family Medicine; Visit Provider Urology
DX: Z01.812 Encounter for preprocedural laboratory examination (principal)
CPT/HCPCS: 36415; 80048; 85027

== ENCOUNTER → 2020-09-14 15:37 | Outpatient (CLI) | payer MEDICARE, OTHER, SELFPAY ==
--- NOTE | 2020-09-14 15:41 | EKG12_ITS ---
Test Reason : PRE OP Blood Pressure : / mmHG Vent. Rate : 086 BPM Atrial Rate : 086 BPM P-R Int : 188 ms QRS Dur : 086 ms QT Int : 356 ms P-R-T Axes : 038 -24 019 degrees QTc Int : 426 ms Normal sinus rhythm Low voltage QRS Inferior infarct , age undetermined , cannot be excluded Poor R wave progression Abnormal ECG Confirmed by XUAN PIERRE, ROSA ([id number]), photo editor REECE MUSA ([id number]) on 09/19/2020 2:54:25 PM Referred By: Joce Klein Confirmed By:ROSA GOVEA MD
== END ==
PROVIDERS: PCP Family Medicine; Referring Provider Urology; Visit Provider Urology
DX: Z01.812 Encounter for preprocedural laboratory examination (principal); Z20.828 Contact with and (suspected) exposure to other viral communicable diseases; I10 Essential (primary) hypertension
CPT/HCPCS: 87635; 93005; U0003

== ENCOUNTER → 2020-10-11 09:39 | Outpatient (CLI) | payer MEDICARE, OTHER, SELFPAY | PROVIDERS: PCP Family Medicine; Visit Provider Nurse Practitioner Adult Health | DX: N52.8 Other male erectile dysfunction (principal); R53.83 Other fatigue | CPT/HCPCS: 36415; 84403 ==

== ENCOUNTER → 2022-07-24 | Outpatient (CLI) | payer OTHER, SELFPAY ==
--- NOTE | 2022-07-24 12:52 | ECHOD_ITS ---
Reason For Study: CAD Procedure This was a 2D Doppler, Color Flow transthoracic echocardiogram. Exam performed in department. Left Ventricle Normal left ventricle. The left ventricular ejection fraction is 65 %. Normal diastololic function. Right Ventricle Normal right ventricle. Atria The left atrium is mildly enlarged. Normal right atrium. Mitral Valve The mitral valve is structurally normal. No prolapse or stenosis seen. Tricuspid Valve Unable to estimate RV systolic pressure due to insufficient tricuspid regurgitant envelope. Trivial tricuspid valve insufficiency. Aortic Valve Normal aortic valve. Pulmonic Valve The pulmonic valve is not well visualized. Great Vessels Mildly dilated aortic root. Pericardium/Pleural No pericardial effusion. MMode/2D Measurements & Calculations LVIDd: 4.2 cm IVSd: 1.0 cm Ao root diam: 3.8 cm LVIDs: 1.8 cm LVPWd: 1.0 cm RVDd: 3.0 cm FS: 55.7 % LAV(MOD-bp): 51.4 ml LA A4 area: 18.5 cm2 LA dimension(2D): 4.3 cm LAV(MOD-bp) Indexed: 24.7 ml/m2 LAV(MOD-sp2): 52.3 ml LAV(MOD-sp4): 50.8 ml RA A4 area: 18.3 cm2 Time Measurements MV dec time: 0.28 sec Doppler Measurements & Calculations MV E max donte: 89.4 cm/sec Lat Peak E' Donte: 8.4 cm/sec Med Peak E' Donte: 10.2 cm/sec MV A max donte: 98.0 cm/sec E/E' lat: 10.6 E/E' med: 8.8 MV E/A: 0.91 MV dec slope: 324.1 cm/sec2 Ao V2 max: 130.4 cm/sec LV V1 max: 111.9 cm/sec Ao max P.8 mmHg LV V1 max P.0 mmHg Ao V2 mean: 88.4 cm/sec LV V1 mean P.9 mmHg Ao mean P.6 mmHg LV V1 mean: 81.2 cm/sec Ao V2 VTI: 29.3 cm LV V1 VTI: 25.2 cm PA V2 max: 94.5 cm/sec TR max donte: 212.2 cm/sec TR max P.0 mmHg ECHO/Echo Complete Interpretation Summary The left ventricular ejection fraction is 65 %. The left atrium is mildly enlarged. Mildly dilated aortic root. Ordering Physician: DAVIDA JOHNSTON Referring Physician: Oscar Linda Performed By: Ruma Moseley RDCS, RVT
== END | disposition home or self-care (01) ==
LOC: CVS 12:44
PROVIDERS: PCP Family Medicine
DX: I25.10 Atherosclerotic heart disease of native coronary artery without angina pectoris (principal)
CPT/HCPCS: 93306

== ENCOUNTER → 2023-09-16 | Outpatient (CLI) | payer MEDICARE, OTHER, SELFPAY ==
--- NOTE | 2023-09-16 10:00 | HIP_PTH ---
PATIENT: WENDY SANTIZO LOC: [facility]#:[id number] AGE/SX: 78/M ROOM: RE09/16/[address]: Dr. Angelo Ibrahim MD : 1945 BED: DIS: 09/16/2023 SPEC #: [id number] RECD: 09/17/23 07:53 STATUS: AMBER REDylon #: [id number] MIKE: 09/16/23 10:[address]: Angelo Ibrahim DEPT: SURGICAL PATHOLOGY RECD BY: Kimberley Tristan ENTERED: 09/17/23 07:54 SP TYPE: TOTAL HIP OTHR DR: Dr. Oscar Linda MD [facility] Tissues: Hip, NOS Procedures: Decalcification bone/plaque Surgery Specimen Level IV HEADER OPERATION: Left total hip replacement PRE-OP DIAGNOSIS: Osteoarthritis left hip TISSUE SUBMITTED: Bone and tissue left hip MICROSCOPIC DIAGNOSIS Left hip bone and soft tissue, total hip replacement/resection: Femoral head with degenerative osteoarthritic changes. Fragments of fibroconnective tissue and reactive synovial tissue. SJ:gunnar 09/23/2023 MICROSCOPIC DESCRIPTION Slides are reviewed. GROSS DESCRIPTION Received is one container labeled with the patient's name and designated bone and soft tissue left hip. The specimen consists of a sharpe femoral head with portion of femoral neck. The femoral head measures 5.0 x 5.0 x 4.5 cm and the femoral neck measures up to 2.0 cm in length. The articular surface displays prominent osteophyte formation, eburnation and bone erosion. Also present in the specimen container are multiple irregular fragments of bone reamings and pink-yellow soft tissue measuring in aggregate 7.0?x 6.0 x 1.5 cm. Loom Winder Tender sections are submitted in two cassettes as follows: 1 - soft tissue, 2??bone after decalcification. / AM:gunnar 09/17/2023 TC:5 CPT: 29504, 51308
== END | disposition home or self-care (01) ==
LOC: LABSPEC 15:27
PROVIDERS: PCP Family Medicine; Referring Provider Orthopaedic Surgery; Visit Provider Orthopaedic Surgery
DX: M16.12 Unilateral primary osteoarthritis, left hip (principal)
CPT/HCPCS: 88305; 88311